=== PATIENT | female | born 1970 | race Caucasian/White ===

== ENCOUNTER 2022-06-19 08:23 | Emergency (ER) | payer OTHER ==
[~2022-06-19] VITALS: Ht 162.6 cm; Wt 79.8 kg
--- NOTE | 2022-06-19 08:32 | NUR ---
Dr Steiner at the bedside for MSE.
[2022-06-19] MEDS ORDERED: TDAP DIPH,PERTUSS,TET VAC/PF 0.5 ML DISP.SYRIN IM ONE ×2 (08:36→08:45)
[2022-06-19] MEDS ORDERED: CIPR-263 PO (09:12)
--- NOTE | 2022-06-19 09:20 | NUR ---
Irrigated puncture site and applied dressing.
[2022-06-19 09:25] VITALS: BP 130/60
--- NOTE | 2022-06-19 09:26 | NUR ---
Patient discharged to home in stable condition. Written and verbal after care instructions given. Patient verbalizes understanding of instructions. Stressed follow up or return to ER for worsening s/s.
== END 2022-06-19 09:30 | disposition home or self-care (01) ==
LOC: ER 08:23
DX: S91.331A Puncture wound without foreign body, right foot, initial encounter (principal); W45.0XXA Nail entering through skin, initial encounter; Y92.89 Other specified places as the place of occurrence of the external cause; E78.5 Hyperlipidemia, unspecified
CPT/HCPCS: 73630; 90715; A4663